=== PATIENT | female | born 1990 | race African-American/Black ===

== ENCOUNTER 2016-10-25 20:46 | Observation (INO) | payer MEDICAID ==
[~2016-10-25 20:46] MED LIST: ADVAIR 100-501 EACH PO; ALBUTEROL0.63 MG/1 PO; BACTRIM DS TAB1 EAC2 PO; FLINTSTONES1 EAC1 PO; HYDROCODON-ACE1 EA16 PO; NORCO 5-325 TA1 EACH PO; NORCO 5/325 TAB1 TAB PO; PRENATAL VITAM1 EA11 PO; PROGESTERONE; ZOFRAN ODT4 MG PO
[2017-02-01] MEDS ORDERED: MACROBID 100 M100 M1 PO (03:06)
[2017-02-01] MEDS ORDERED: PRILOSEC OTC20 M1 PO (03:06)
[2017-03-19] MEDS ORDERED: NO HOME MEDICATION (02:12)
== END 2016-10-25 22:10 | disposition still patient (30) ==
LOC: LDR 20:46
PROVIDERS: ADMIT Obstetrics & Gynecology Obstetrics
DX: O99.89 Other specified diseases and conditions complicating pregnancy, childbirth and the puerperium (principal); R07.9 Chest pain, unspecified; R10.30 Lower abdominal pain, unspecified; Z3A.29 29 weeks gestation of pregnancy; Z88.0 Allergy status to penicillin; Z88.8 Allergy status to other drugs, medicaments and biological substances

== ENCOUNTER 2016-10-25 22:17 | Emergency (ER) | payer MEDICAID ==
[2016-10-25 23:13] LABS: BASO % 0.2 % (0-2); EOS % 1.1 % (0-7); EOSINOPHIL ABSOLUTE COUNT 0.1 tho/cmm (0.0-0.7); HCT-HEMATOCRIT 33.3 % (34.0-49.0); HGB-HEMOGLOBIN 11.3 gm/dl (12.0-15.5); IMMATURE GRANULOCYTES ABSOLUTE 0.03 tho/cmm (0-0.03); IMMATURE GRANULOCYTES PERCENT 0.3 % (0-0.3); LYMPH % 20.9 % (20-45); MCHC MEAN CORPUSCULAR HGB CONC 33.9 % (32.0-36.0); MCV (MEAN CELL VOLUME) 88.3 fl (82.0-96.0); MEAN PLATELET VOLUME 10.2 cmc (9.4-12.4); MONOCYTE ABSOLUTE COUNT 0.7 tho/cmm (0.0-1.2); NEUTROPHIL ABSOLUTE COUNT 6.6 tho/cmm (1.6-8.0); NEUTROPHIL-AUTOMATED 6.6 tho/cmm (1.6-8.0); NEUTROPHILS % 70.5 % (40-80); PLATELET COUNT 243 tho/cmm (150-450); RED BLOOD COUNT 3.77 mil/cmm (4.00-5.20); RED CELL DISTRIBUTION WIDTH 13.1 % (12.4-16.4); WHITE BLOOD COUNT 9.4 tho/cmm (4.0-10.0)
[2016-10-25 23:17] LABS: ANION GAP 11 mmol/L (0-20); BLOOD UREA NITROGEN 5 mg/dl (6-24); CALCIUM 8.7 mg/dl (8.5-10.5); CARBON DIOXIDE-VENOUS 23 mmol/L (22-32); CHLORIDE 109 mmol/l (96-110); CREATININE 0.72 mg/dl (0.50-1.10); GLUCOSE 86 mg/dL (70-110); SODIUM 139 mmol/L (135-145); eGFR VALUE FOR BLACK >90 mL/Min
[2016-10-25 23:38] LABS: POTASSIUM 3.9 mmol/L (3.7-5.1)
[2017-02-01] MEDS ORDERED: MACROBID 100 M100 M1 PO (03:06)
[2017-02-01] MEDS ORDERED: PRILOSEC OTC20 M1 PO (03:06)
[2017-03-19] MEDS ORDERED: NO HOME MEDICATION (02:12)
== END 2016-10-26 00:29 ==
LOC: EDMED 22:17
PROVIDERS: Emergency Medicine
DX: R09.1 Pleurisy (principal); Z90.49 Acquired absence of other specified parts of digestive tract
CPT/HCPCS: Q9967

== ENCOUNTER 2016-10-28 01:59 | Observation (INO) | payer MEDICAID ==
[2016-10-28 02:54] LABS: URINE BILIRUBIN NEGATIVE (NEG); URINE BLOOD NEGATIVE (NEG); URINE GLUCOSE (UA) NEGATIVE (NEG); URINE KETONE NEGATIVE (NEG); URINE LEUKOCYTE ESTERASE NEGATIVE (NEG); URINE NITRITE NEGATIVE (NEG); URINE PROTEIN NEGATIVE (NEG); URINE SPECIFIC GRAVITY 1.015 (1.003-1.030)
[2016-10-28 02:55] LABS: URINE APPEARANCE CLEAR; URINE COLOR YELLOW
[2017-02-01] MEDS ORDERED: PRILOSEC OTC20 M1 PO (03:06)
[2017-02-01] MEDS ORDERED: MACROBID 100 M100 M1 PO (03:06)
[2017-03-19] MEDS ORDERED: NO HOME MEDICATION (02:12)
== END 2016-10-28 03:30 ==
LOC: LDR 01:59
PROVIDERS: ADMIT Obstetrics & Gynecology Obstetrics
DX: Z03.71 Encounter for suspected problem with amniotic cavity and membrane ruled out (principal); Z3A.29 29 weeks gestation of pregnancy; Z88.0 Allergy status to penicillin; Z88.8 Allergy status to other drugs, medicaments and biological substances; Z87.440 Personal history of urinary (tract) infections; Z90.49 Acquired absence of other specified parts of digestive tract; Z98.890 Other specified postprocedural states

== ENCOUNTER 2016-11-18 14:17 | Observation (INO) | payer MEDICAID ==
[2016-11-18 14:46] LABS: URINE BILIRUBIN NEGATIVE (NEG); URINE BLOOD NEGATIVE (NEG); URINE GLUCOSE (UA) NEGATIVE (NEG); URINE KETONE NEGATIVE (NEG); URINE LEUKOCYTE ESTERASE POSITIVE (NEG); URINE NITRITE NEGATIVE (NEG); URINE PROTEIN SMALL (NEG); URINE SPECIFIC GRAVITY 1.025 (1.003-1.030)
[2016-11-18 14:47] LABS: URINE APPEARANCE HAZY; URINE COLOR DARK YELLOW
[2016-11-18 14:52] LABS: URINE MUCUS 1+
[2016-11-18 14:53] LABS: URINE BACTERIA 2+
[2016-11-18 14:58] LABS: BASO % 0.1 % (0-2); EOS % 0.8 % (0-7); EOSINOPHIL ABSOLUTE COUNT 0.1 tho/cmm (0.0-0.7); HCT-HEMATOCRIT 33.4 % (34.0-49.0); HGB-HEMOGLOBIN 11.3 gm/dl (12.0-15.5); IMMATURE GRANULOCYTES ABSOLUTE 0.05 tho/cmm (0-0.03); IMMATURE GRANULOCYTES PERCENT 0.5 % (0-0.3); LYMPH % 17.7 % (20-45); LYMPH ABSOLUTE COUNT 1.7 tho/cmm (0.8-4.5); MCH (MEAN CORPUSCULAR HGB) 29.9 pg (28.0-32.0); MCHC MEAN CORPUSCULAR HGB CONC 33.8 % (32.0-36.0); MCV (MEAN CELL VOLUME) 88.4 fl (82.0-96.0); MEAN PLATELET VOLUME 10.3 cmc (9.4-12.4); MONO % 6.5 % (0-12); MONOCYTE ABSOLUTE COUNT 0.6 tho/cmm (0.0-1.2); NEUTROPHIL ABSOLUTE COUNT 7.2 tho/cmm (1.6-8.0); NEUTROPHIL-AUTOMATED 7.2 tho/cmm (1.6-8.0); NEUTROPHILS % 74.4 % (40-80); PLATELET COUNT 230 tho/cmm (150-450); RED BLOOD COUNT 3.78 mil/cmm (4.00-5.20); RED CELL DISTRIBUTION WIDTH 13.1 % (12.4-16.4); WHITE BLOOD COUNT 9.7 tho/cmm (4.0-10.0)
[2016-11-18 14:59] LABS: URINE TOTAL PROTEIN-RANDOM 17.1 mg/dl (<11.8)
[2016-11-18 15:15] LABS: ALB/GLOB RATIO 0.5 (0.8-2.0); ALBUMIN 2.6 g/dl (3.5-5.0); ALKALINE PHOSPHATASE 173 U/L (33-138); ALT/SGPT 21 U/L (12-78); ANION GAP 13 mmol/L (0-20); AST/SGOT 13 U/L (10-40); BILIRUBIN,TOTAL 0.2 mg/dl (0-1.5); BLOOD UREA NITROGEN 6 mg/dl (6-24); CALCIUM 8.9 mg/dl (8.5-10.5); CARBON DIOXIDE-VENOUS 26 mmol/L (22-32); CHLORIDE 105 mmol/l (96-110); CREATININE 0.77 mg/dl (0.50-1.10); GLUCOSE 78 mg/dL (70-110); SODIUM 140 mmol/L (135-145); eGFR VALUE FOR BLACK >90 mL/Min
[2016-11-18 15:42] LABS: URINE PRT/CR RATIO 0.06 Ratio (0.0-0.20)
[2017-02-01] MEDS ORDERED: MACROBID 100 M100 M1 PO (03:06)
[2017-02-01] MEDS ORDERED: PRILOSEC OTC20 M1 PO (03:06)
[2017-03-19] MEDS ORDERED: NO HOME MEDICATION (02:12)
== END 2016-11-18 18:25 ==
LOC: LDR 14:17
PROVIDERS: ADMIT Obstetrics & Gynecology
DX: O99.89 Other specified diseases and conditions complicating pregnancy, childbirth and the puerperium (principal); H53.8 Other visual disturbances; R51 Headache; R60.0 Localized edema; Z3A.32 32 weeks gestation of pregnancy; Z79.899 Other long term (current) drug therapy; Z88.0 Allergy status to penicillin; Z88.8 Allergy status to other drugs, medicaments and biological substances; Z98.890 Other specified postprocedural states

== ENCOUNTER 2016-11-26 23:30 | Observation (INO) | payer MEDICAID ==
[2016-11-27 00:22] LABS: URINE BILIRUBIN NEGATIVE (NEG); URINE BLOOD NEGATIVE (NEG); URINE GLUCOSE (UA) NEGATIVE (NEG); URINE KETONE NEGATIVE (NEG); URINE LEUKOCYTE ESTERASE POSITIVE (NEG); URINE NITRITE NEGATIVE (NEG); URINE PROTEIN NEGATIVE (NEG); URINE SPECIFIC GRAVITY 1.015 (1.003-1.030)
[2016-11-27 00:23] LABS: URINE APPEARANCE HAZY; URINE COLOR YELLOW
[2016-11-27 00:30] LABS: URINE WBC 0-1 /[HPF] (0-5)
[2016-11-27 00:31] LABS: URINE AMORPHOUS 3+; URINE BACTERIA 2+; URINE MUCUS 1+; URINE RBC 0 /[HPF] (0-5)
[2017-02-01] MEDS ORDERED: MACROBID 100 M100 M1 PO (03:06)
[2017-02-01] MEDS ORDERED: PRILOSEC OTC20 M1 PO (03:06)
[2017-03-19] MEDS ORDERED: NO HOME MEDICATION (02:12)
== END 2016-11-27 01:45 ==
LOC: LDR 23:30
PROVIDERS: ADMIT Obstetrics & Gynecology
DX: O99.89 Other specified diseases and conditions complicating pregnancy, childbirth and the puerperium (principal); N89.8 Other specified noninflammatory disorders of vagina; Z3A.33 33 weeks gestation of pregnancy; Z88.0 Allergy status to penicillin; Z88.6 Allergy status to analgesic agent

== ENCOUNTER 2016-11-30 17:56 | Observation (INO) | payer MEDICAID ==
[2016-11-30] MEDS ORDERED: ZANTAC150 M1 PO (18:42)
[2016-11-30 18:45] LABS: URINE BILIRUBIN NEGATIVE (NEG); URINE BLOOD NEGATIVE (NEG); URINE GLUCOSE (UA) NEGATIVE (NEG); URINE KETONE NEGATIVE (NEG); URINE LEUKOCYTE ESTERASE NEGATIVE (NEG); URINE NITRITE NEGATIVE (NEG); URINE PROTEIN NEGATIVE (NEG)
[2016-11-30 18:46] LABS: URINE APPEARANCE CLEAR; URINE COLOR YELLOW
[2017-02-01] MEDS ORDERED: MACROBID 100 M100 M1 PO (03:06)
[2017-02-01] MEDS ORDERED: PRILOSEC OTC20 M1 PO (03:06)
[2017-03-19] MEDS ORDERED: NO HOME MEDICATION (02:12)
== END 2016-11-30 19:50 ==
LOC: LDR 17:56
PROVIDERS: Obstetrics & Gynecology; ADMIT Obstetrics & Gynecology
DX: O47.03 False labor before 37 completed weeks of gestation, third trimester (principal); Z3A.32 32 weeks gestation of pregnancy

== ENCOUNTER 2016-12-20 21:47 | Observation (INO) | payer MEDICAID ==
[~2016-12-20 21:47] MED LIST changes: +ZANTAC150 M1 PO
[2016-12-20 23:09] LABS: URINE COLOR YELLOW
[2016-12-20 23:10] LABS: URINE APPEARANCE CLEAR; URINE BILIRUBIN NEGATIVE (NEG); URINE BLOOD NEGATIVE (NEG); URINE GLUCOSE (UA) NEGATIVE (NEG); URINE KETONE NEGATIVE (NEG); URINE LEUKOCYTE ESTERASE NEGATIVE (NEG); URINE NITRITE NEGATIVE (NEG); URINE PH 6.5 (5.0-8.0); URINE PROTEIN NEGATIVE (NEG)
[2017-02-01] MEDS ORDERED: MACROBID 100 M100 M1 PO (03:06)
[2017-02-01] MEDS ORDERED: PRILOSEC OTC20 M1 PO (03:06)
[2017-03-19] MEDS ORDERED: NO HOME MEDICATION (02:12)
== END 2016-12-20 23:25 ==
LOC: LDR 21:47
PROVIDERS: ADMIT Obstetrics & Gynecology
DX: O99.89 Other specified diseases and conditions complicating pregnancy, childbirth and the puerperium (principal); R25.2 Cramp and spasm; O99.513 Diseases of the respiratory system complicating pregnancy, third trimester; J45.909 Unspecified asthma, uncomplicated; Z3A.37 37 weeks gestation of pregnancy; Z79.899 Other long term (current) drug therapy; Z88.0 Allergy status to penicillin; Z88.8 Allergy status to other drugs, medicaments and biological substances; Z90.49 Acquired absence of other specified parts of digestive tract; Z98.890 Other specified postprocedural states

== ENCOUNTER 2017-01-02 07:10 | Inpatient (IN) | payer MEDICAID ==
[2017-01-02] MEDS ORDERED: PROAIR RESPICL90 MCG (08:56)
[2017-01-02] MEDS ORDERED: ADVAIR 25028 BLISTE1 PO (08:58)
[2017-01-02 10:46] LABS: BASO % 0.2 % (0-2); EOS % 0.7 % (0-7); EOSINOPHIL ABSOLUTE COUNT 0.1 tho/cmm (0.0-0.7); HCT-HEMATOCRIT 36.2 % (34.0-49.0); HGB-HEMOGLOBIN 12.1 gm/dl (12.0-15.5); IMMATURE GRANULOCYTES ABSOLUTE 0.07 tho/cmm (0-0.03); IMMATURE GRANULOCYTES PERCENT 0.8 % (0-0.3); LYMPH % 19.1 % (20-45); LYMPH ABSOLUTE COUNT 1.7 tho/cmm (0.8-4.5); MCH (MEAN CORPUSCULAR HGB) 29.3 pg (28.0-32.0); MCHC MEAN CORPUSCULAR HGB CONC 33.4 % (32.0-36.0); MCV (MEAN CELL VOLUME) 87.7 fl (82.0-96.0); MEAN PLATELET VOLUME 10.9 cmc (9.4-12.4); MONOCYTE ABSOLUTE COUNT 0.6 tho/cmm (0.0-1.2); NEUTROPHIL ABSOLUTE COUNT 6.3 tho/cmm (1.6-8.0); NEUTROPHIL-AUTOMATED 6.3 tho/cmm (1.6-8.0); NEUTROPHILS % 72.2 % (40-80); PLATELET COUNT 234 tho/cmm (150-450); RED BLOOD COUNT 4.13 mil/cmm (4.00-5.20); RED CELL DISTRIBUTION WIDTH 13.3 % (12.4-16.4); WHITE BLOOD COUNT 8.8 tho/cmm (4.0-10.0)
[2017-01-03 05:23] LABS: BASO % 0.2 % (0-2); EOS % 0.7 % (0-7); EOSINOPHIL ABSOLUTE COUNT 0.1 tho/cmm (0.0-0.7); HCT-HEMATOCRIT 30.1 % (34.0-49.0); HGB-HEMOGLOBIN 10.1 gm/dl (12.0-15.5); IMMATURE GRANULOCYTES ABSOLUTE 0.05 tho/cmm (0-0.03); IMMATURE GRANULOCYTES PERCENT 0.4 % (0-0.3); LYMPH % 19.8 % (20-45); LYMPH ABSOLUTE COUNT 2.6 tho/cmm (0.8-4.5); MCH (MEAN CORPUSCULAR HGB) 29.4 pg (28.0-32.0); MCHC MEAN CORPUSCULAR HGB CONC 33.6 % (32.0-36.0); MCV (MEAN CELL VOLUME) 87.8 fl (82.0-96.0); MEAN PLATELET VOLUME 10.7 cmc (9.4-12.4); MONO % 6.2 % (0-12); MONOCYTE ABSOLUTE COUNT 0.8 tho/cmm (0.0-1.2); NEUTROPHIL ABSOLUTE COUNT 9.6 tho/cmm (1.6-8.0); NEUTROPHIL-AUTOMATED 9.6 tho/cmm (1.6-8.0); NEUTROPHILS % 72.7 % (40-80); PLATELET COUNT 209 tho/cmm (150-450); RED BLOOD COUNT 3.43 mil/cmm (4.00-5.20); RED CELL DISTRIBUTION WIDTH 13.4 % (12.4-16.4); WHITE BLOOD COUNT 13.2 tho/cmm (4.0-10.0)
[2017-01-04] MEDS ORDERED: IBUPROFEN800 M1 PO (10:36)
[2017-02-01] MEDS ORDERED: MACROBID 100 M100 M1 PO (03:06)
[2017-02-01] MEDS ORDERED: PRILOSEC OTC20 M1 PO (03:06)
[2017-03-19] MEDS ORDERED: NO HOME MEDICATION (02:12)
== END 2017-01-04 13:40 | DRG 775 ==
LOC: LDR 07:10 → OBGE 19:43
PROVIDERS: Advanced Practice Midwife; ADMIT Obstetrics & Gynecology
PROC: 10E0XZZ Delivery of Products of Conception, External Approach (ICD-10-PCS; principal; 2017-01-02)
PROC: 10907ZC Drainage of Amniotic Fluid, Therapeutic from Products of Conception, Via Natural or Artificial Opening (ICD-10-PCS; 2017-01-02)
PROC: 3E033VJ Introduction of Other Hormone into Peripheral Vein, Percutaneous Approach (ICD-10-PCS; 2017-01-02)
DX: O99.89 Other specified diseases and conditions complicating pregnancy, childbirth and the puerperium (principal); G89.29 Other chronic pain; Z37.0 Single live birth; M54.5 Low back pain; Z3A.39 39 weeks gestation of pregnancy
CPT/HCPCS: J2590; J3010